=== PATIENT | male | born 1935 | race Caucasian/White ===

== ENCOUNTER 2017-03-23 16:06 | Inpatient (IN) | payer OTHER ==
[~2017-03-23] VITALS: Ht 190.5 cm; Wt 100.9 kg
--- NOTE | ~2017-03-23 | CATHLAB ---
[facility] [address] [place] [address] INVASIVE PROCEDURE REPORT Name: IVONNE SONG Room #: 203-P ADM IN .R.#: [id number] Admission: 03/23/17 Attend Phys: Peter Estrella, Discharge: Date of : 39 Date of Service: 03/28/17 1733 Report #: [id number] THIS REPORT FOR: //name// APPROVED REPORT Patient Details Patient Status: In-Patient Room #: The patient is a 81 year-old male Event Personnel Shay Hermosillo Tuft Machine Operator, Donna Javier, Jose Gerardo RN, Toyin Ocasio RN RN, Melanie Bills Procedures Performed Art Access - R femoral artery* Left Heart Cath w/or w/o Coronaries [id number] [facility] Hemostasis w/ Mynx Procedure Narrative The Right Groin^ was infiltrated with 1% Lidocaine subcutaneous anesthesia. A PINNACLE 6FR Sheath #[id number] sheath was inserted into the RFA^. Coronary angiography was performed using coronary diagnostic catheters. The right coronary system was accessed and visualized with a JR 4 catheter. The left coronary system was accessed and visualized with a JL 4 catheter. The left ventricle was accessed and visualized with a Pigtail catheter. Left ventricular/Aortic Valve gradient assessed via catheter pullback. Left ventriculogram was performed in 30 degree projection. Closure device was deployed with a 6 Fr Mynx. The patient tolerated the procedure well and there were no complications associated with the procedure. There was no hematoma. Fluoro Time: 15.27 minutes Dose: DAP 19288.50 cGycm2 1997 mGy Contrast Type and Amount: Visipaque 130 ml Hemodynamics The aortic pressure is 161/74 mmHg with a mean of 109 mmHg. The left ventricular pressure is 187/14 mmHg with a mean of mmHg. The left ventricular end diastolic pressure is 31 mmHg. Conclusion #1 borderline left ventricular dilatation mild global hypokinesis slightly worse inferior wall EF 45% range #2 left main mildly calcified giving rise to LAD and circumflex [facility] [address] [place] [address] INVASIVE PROCEDURE REPORT Name: NOHEMIIVONNE Samir Room #: 203-P [facility] IN .R.#: [id number] Admission: 03/23/17 Attend Phys: Peter Estrella, Discharge: Date of : 39 Date of Service: 03/28/17 1733 Report #: [id number] #3 LAD with proximal calcification mild irregularities extends around the apex moderate disease and a smaller diagonal system #4 nondominant circumflex ostial circumflex 40-50% diffuse disease distally #5 dominant RCA with a subtotaled what appears to be possible chronic total occlusion proximal vessel imperatively filling the PDA with collateral fill from the left system #6 unsuccessful attempted PTCA of this total occluded segment with significant calcification in the proximal RCA. It was successfully wired unable to cross with the smallest profile balloon. Recommendations and plan would continue aggressive risk factor modification aggressive medical therapy. Due to the fact that this vessel is collaterally filled risk-benefit of further attempted this RCA perspective probably not indicated. Aggressive management of risk factors and volume status. Ejection fraction near normal. Close follow-up is recommended <ELECTRONICALLY SIGNED> By: Shay Hermosillo MD, [facility] 03/28/17 [phone] Shay Hermosillo MD, FACC /INF
--- NOTE | ~2017-03-23 | 2DMMODE ---
[facility] [address] [place] [address] 2 D/M-MODE ECHOCARDIOGRAM Name: IVONNE SONG Room #: 212-P [facility] IN .R.#: [id number] Admission: 03/23/17 Attend Phys: Peter Estrella, Discharge: Date of : 39 Date of Service: 03/26/17 1136 Report #: [id number] THIS REPORT FOR: //name// APPROVED REPORT Study performed: 03/26/2017 09:06:04 EXAM: Comprehensive 2D, Doppler, and color-flow Echocardiogram Patient Location: Bedside Room #: 212 Status: routine BSA: 2.32 HR: 89 bpm BP: 147/86 mmHg Other Information Study Quality: Good Indications Congestive Heart Failure Cardiomyopathy ICD. 2D Dimensions RVDd: 59.40 mm LVEF(%): 42.90 (>50%) IVSd: 13.70 (7-11mm) LVOT Diam: 22.43 (18-24mm) LVDd: 54.78 mm PWd: 14.99 (7-11mm) Ascending Ao: 26.97 (22-36mm) LVDs: 43.07 (25-40mm) Aortic Root: 32.89 mm IVC: 40.00 mm Baker's LVEF: 42.90 % Volumes Left Atrial Volume (Systole) Single Plane 4CH: 80.30 mL Single Plane 2CH: 188.66 mL LA ESV Index: 58.00 mL/m2 Aortic Valve AoV Peak Morgan.: 1.87 m/s AO Peak Gr.: 14.19 mmHg LVOT Max P.00 mmHg LVOT Max V: 0.86 m/s NICK Vmax: 1.82 cm2 AI Vmax: 4.16 m/s AI [place]: 3.12 m/s2 AI PHT: 395.78 ms [facility] [place] [address] 2 D/M-MODE ECHOCARDIOGRAM Name: IVONNE SONG Room #: 212-P [facility] IN M.R.#: [id number] Admission: 03/23/17 Attend Phys: Peter Estrella, Discharge: Date of : 39 Date of Service: 03/26/17 1136 Report #: [id number] Mitral Valve MV Decel. Time: 181.66 ms MV E Max Morgan.: 1.40 m/s Pulmonary Valve PV Peak Morgan.: 1.15 m/s PV Peak Gr.: 5.30 mmHg [place] End Vmax: 1.76 m/s Tricuspid Valve TR Peak Morgan.: 3.57 m/s TR Peak Gr.: 51.08 mmHg PA Pressure: 66.00 mmHg Left Ventricle Left ventricle is at the upper limits of normal. Abnormall septal motion consistent with paced rhythm. Mild concentric left ventricular hypertrophy. The overall left ventricular systolic function appears normal. LVEF is 50-55%. This study is not technically sufficient to allow evaluation of the LV diastolic function. Right Ventricle Right ventricle is dilated. Right ventricle is hypokinetic. Device lead is present in the right ventricle. Atria Left atrium is dilated. Small PFO is noted with color flow doppler. Right atrium is dilated. Device lead is present in the right atrium. Aortic Valve The aortic valve is normal in structure. Aortic valve is calcified. Mild to moderate aortic regurgitation. There is no aortic valvular stenosis. Mitral Valve The mitral valve is normal in structure. There is mitral annular calcification. Moderate mitral regurgitation. No evidence of mitral valve stenosis. Tricuspid Valve The tricuspid valve is normal in structure. There is moderate tricuspid regurgitation. There is moderate pulmonary hypertension. Pulmonic Valve [address] [address] 2 D/M-MODE [facility]ARDIOGRAM [facility] #: [facility]-P [facility] IN M.R.#: [id number] Admission: 03/23/17 Attend Phys: Peter Estrella, Discharge: Date of : 37 Date of Service: 03/26/17 1136 Report #: [id number] The pulmonary valve is normal in structure. Mild pulmonic regurgitation. Great Vessels The aortic root is normal in size. The inferior vena cava is dilated with no inspiratory collapse. Pericardium There is no pericardial effusion. <Conclusion> Left ventricle is at the upper limits of normal. LVEF is 50-55%. Mild concentric left ventricular hypertrophy. This study is not technically sufficient to allow evaluation of the LV diastolic function. Right ventricle is dilated. Right ventricle is hypokinetic. Left atrium is dilated. Right atrium is dilated. Device lead is present in the right atrium. The aortic valve is normal in structure. Aortic valve is calcified. There is no aortic valvular stenosis. Moderate mitral regurgitation. There is moderate tricuspid regurgitation. There is moderate pulmonary hypertension. There is no pericardial effusion. <ELECTRONICALLY SIGNED> By: Shay Hermosillo MD, FACC 03/26/17 1136 1136 1136 Shay Hermosillo MD, FACC /INF
--- NOTE | ~2017-03-23 | HC ---
[facility] [place] [address] [place] [address] CONSULTATION Name: IVONNE SONG Room #: 203-P [facility] IN M.R.#: [id number] Admission: 03/23/17 Attend Phys: Peter Estrella DO Discharge: Date of : 37 Report #: [id number] THIS REPORT FOR: //name// CC: Peter Estrella DATE OF SERVICE: 03/27/2017 HISTORY OF PRESENT ILLNESS: The patient is a 81-year-old white male who was admitted to [facility] for right leg swelling. He was noted to have distal aortic stenosis, bilateral external iliac artery stenosis. He also was noted to have right lower extremity cellulitis. He was diagnosed with peripheral arterial disease with blockage and underwent stenting by Dr. Thayer. He also has coronary artery disease and per my review, this is not stentable. He has urinary retention with Reza catheter. He also has delirium and is noted to be in alcohol withdrawal with Psychiatry involved. We are seeing him in Rehabilitation Medicine consultation. 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 History of chronic obstructive pulmonary disease, was on some O2 at night and did take O2 on occasion during the day with activity. History of ETOH, heavy; tobacco abuse, heavy noted. He has had a prior stress fracture, right tibia. MEDICATIONS: Please see the full medication listing. ALLERGIES: No known drug allergies. HABITS: See above. FAMILY HISTORY: Noncontributory. SOCIAL HISTORY: Lives in a house with his . Premorbid walker ambulator, they have a ramp into the house. He was on oxygen premorbidly as noted above intermittently. REVIEW OF SYSTEMS: Somewhat difficult with his mental status. No complaints of chest pain, shortness of breath or abdominal discomfort. He had some complaints of having to urinate, and I emptied some of the urine in his tubing and that seemed to help his symptoms as he does have the Reza catheter. He did not indicate any focal extremity pain complaints at this time. PHYSICAL EXAMINATION: GENERAL: A 81-year-old obese white male, confused. Defers to his . He was cooperative. He can follow basic 1-step commands without difficulty. He could not tell me the place nor the city. VITAL SIGNS: Temperature 97.3, pulse 86, respirations 20, blood pressure [facility] [address] [place] [address] CONSULTATION Name: NOHEMI,IVONNE Dawson Room #: 203-P [facility] IN M.R.#: [id number] Admission: 03/23/17 Attend Phys: Peter Estrella DO Discharge: Date of : 37 Report #: [id number] 147/73. HEENT: Facies appeared symmetric. EXTREMITIES: He has functional range of motion of both upper extremities. Strength is probably a grade 3+ to 4-/5. DTRs are trace to 1 in his lower extremities; there is no focal calf swelling. He has some chronic skin changes of bilateral distal lower extremities with what appeared to be some old venous stasis changes. Lower extremity strength is probably grade 3+/5. DTRs are trace to 1. ASSESSMENT: A 81-year-old white male with the following problem list: 1. Peripheral arterial disease with blockage status post stenting. The right superficial femoral artery and popliteal underwent stent grafting. 2. Right lower extremity cellulitis. He has been on antibiotics as noted. 3. ETOH abuse with current withdrawal. 4. Paroxysmal atrial fibrillation. 5. Permanent pacemaker. 6. Cardiomyopathy. 7. Chronic obstructive pulmonary disease, on some oxygen premorbidly at home. 8. Urinary retention with Reza catheter in place. 9. Possible sepsis with Infectious Disease involved. 10. Prior history of a stress fracture, right tibia. PLAN: Therapy evaluations are underway. is desiring for the patient to go to the [facility] swing bed when he is further medically stabilized. At this point, we will follow along with you but that may certainly be a reasonable plan. Case management will further assist regarding arrangements with the [facility]. <ELECTRONICALLY SIGNED> By: Lexa Robin MD 04/02/17 1232 1240 0023 Lexa Robin MD /PAUL
--- NOTE | ~2017-03-23 | HC ---
[facility] [address] [place] [address] CONSULTATION Name: JANIVONNE WEIR Samir Room #: 212-P [facility] IN M.R.#: [id number] Admission: 03/23/17 Attend Phys: Peter Estrella DO Discharge: Date of : 37 Report #: [id number] THIS REPORT FOR: //name// CC: Peter Estrella REASON FOR CONSULTATION: I was asked to evaluate concerning right lower extremity infection. HISTORY OF PRESENT ILLNESS: The patient is a 81-year-old with underlying history of cardiovascular disease with congestive heart failure, previous DVT, COPD. Over the last several days, he has had increased pain and swelling in the right lower extremity. He reports no specific trauma. Outpatient workup included ultrasound of the leg, which was negative for DVT. Because of the worsening, he was sent into the ER at [facility] and then transferred here for further evaluation. He has had arterial studies, which showed monophasic waves in the right lower extremity. His white count has been elevated at 20,000. I do not have access to further laboratory studies. The patient was a poor historian. ALLERGIES: None known. MEDICATIONS: As noted on his MAR, which were reviewed including digoxin, Coumadin. PAST MEDICAL HISTORY: Atrial fibrillation, coronary artery disease, previous cardiac arrest, congestive heart failure, syncope, gout, hyperlipidemia, cataract surgery, stroke, COPD. FAMILY HISTORY: Noncontributory. SOCIAL HISTORY: He is a past smoker, significant alcohol intake. REVIEW OF SYSTEMS: He denies any cough or sputum production. Denies any chest pain, nausea, vomiting or diarrhea. He has a difficulty urinating and has a Reza catheter in, now complains a discomfort with this. PHYSICAL EXAMINATION: VITAL SIGNS: He is afebrile, hemodynamically stable, pulse is 118. GENERAL: He was alert and cooperative, although was uncomfortable. He is on 2 liters of oxygen per nasal cannula. HEENT: Unremarkable. NECK: Supple, no adenopathy. LUNGS: Decreased breath sounds bilaterally. HEART: Tachycardic and regular. ABDOMEN: Protuberant, nontender, no hepatosplenomegaly or mass. GENITOURINARY: External genitalia unremarkable with indwelling Reza catheter. RECTAL: Not performed. [facility] [address] [place] [address] CONSULTATION Name: NOHEMIIVONNE Room #: 212-P [facility] IN M.R.#: [id number] Admission: 03/23/17 Attend Phys: Peter Estrella DO Discharge: Date of : 37 Report #: [id number] EXTREMITIES: Right lower extremity had erythema and ecchymosis, foot to proximal calf region. Exquisitely tender. Decreased pulses in the foot on the right. Good pulse in the groin. Could not palpate a reasonable pulse in the popliteal region. Also had mild erythema to the left lower extremity. Strength was reasonable. LABORATORY STUDIES: As noted above. Repeat studies are currently pending. IMPRESSION: A 81-year-old with a painful right lower extremity, appears ischemia maybe the underlying etiology. Has secondary infection. Staphylococcus or streptococcus would be most likely in etiology; I do not see any chronic wounds. Recommend repeating his laboratory studies. Continue antibiotic coverage for his lower extremity infection. Further imaging to assess his vasculature. <ELECTRONICALLY SIGNED> By: Davy Burrows MD 03/24/17 [phone] 0221 Davy Burrows MD /nt
--- NOTE | ~2017-03-23 | EKG ---
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: smooth : 1935 Requested By: Davy Burrows Order Number: [id number] MD: Georges Oates Measurements Intervals [place] Rate: 78 P: -53 ID: [id number] QRS: 224 QRSD: 154 T: 32 QT: 427 QTc: 487 Interpretive Statements Ventricular-paced complexes No further analysis attempted due to paced rhythm Baseline wander in lead(s) V2 Compared to ECG 01/08/2010 09:41:48 Ventricular pacing is now present Electronically Signed On 03-24-2017 16:27:16 CDT by Georges Oates [email or web address] <ELECTRONICALLY SIGNED> By: Georges Oates MD, [facility] 03/24/17 1627 0620 Georges Oates MD, [facility] /EPI
--- NOTE | ~2017-03-23 | EKG ---
[place] [address] [facility] [place] [address] ELECTROCARDIOGRAM REPORT Name: IVONNE SONG Room #: 212-P ADM IN M.R.#: [id number] Admission: 03/23/17 Attend Phys: Peter Estrella DO Discharge: Date of : 37 Report #: [id number] THIS REPORT FOR: //name// [facility] Test Date: 2017-03-24 Test Time: 07:00:15 Pat Name: IVONNE SONG Department: Room: 212 P Gender: M [employer] Rep: smooth : 1935 Requested By: Kevin Lake Order Number: [id number] MD: Georges Oates Measurements Intervals [place] Rate: 89 P: OR: QRS: 219 QRSD: 176 T: 31 QT: 453 QTc: 552 Interpretive Statements Afib/flut and V-paced complexes No further analysis attempted due to paced rhythm Compared to ECG 01/08/2010 09:41:48 No significant change was found Electronically Signed On 03-24-2017 8:01:00 CDT by Georges Oates [email or web address] <ELECTRONICALLY SIGNED> By: Georges Oates MD, [facility] 09/05/30 [phone] Georges Oates MD, [facility] /EPI
--- NOTE | ~2017-03-23 | HC ---
[facility] [place] [address] [place] [address] CONSULTATION Name: IVONNE SONG Room #: 212-P [facility] IN M.R.#: [id number] Admission: 03/23/17 Attend Phys: Peter Estrella DO Discharge: Date of : 37 Report #: [id number] THIS REPORT FOR: //name// CC: Peter Estrella DATE OF SERVICE: 03/23/2017 CARDIOLOGY CONSULTATION INDICATION: Elevated troponin. HISTORY OF PRESENT ILLNESS: This is a 81-year-old gentleman transferred from [facility] with right lower extremity cellulitis. The patient has had diminished ambulation, exacerbated recently. He has had increased swelling and erythema of his right lower extremity, diagnosed with cellulitis and transferred to [facility]. He is unclear about his cardiac history. It seems that he had a pacemaker placed at [facility] by Dr. Dong and has seen him recently. There is also a history of paroxysmal atrial fibrillation. The patient denies any history of [place] or cardiomyopathy. ALLERGIES: None. MEDICATIONS: Include digoxin 0.125 mg a night, albuterol, furosemide 20 mg daily, metoprolol XL 50 mg daily, Eliquis twice a day. Unclear if he is on Eliquis or Coumadin for paroxysmal atrial fibrillation, history of CVA, COPD. SOCIAL HISTORY: Negative for tobacco use. FAMILY HISTORY: Negative for premature CAD. REVIEW OF SYSTEMS: A full 10-point review of systems performed. Only the pertinent positives and negatives are described in the HPI. PHYSICAL EXAMINATION: VITAL SIGNS: Blood pressure is 110/60, heart rate is 95 beats per minute. GENERAL APPEARANCE: An overweight male in no acute respiratory distress. HEAD AND EYES: Normocephalic. Sclerae are anicteric. ENT: Oral mucosa is moist. NECK: Supple, no JVD. LUNGS: Clear to auscultation, slightly diminished breath sounds at bases. CARDIAC: S1, S2 positive, no gallops. ABDOMEN: Protuberant, soft, nontender. EXTREMITIES: Erythema of the right lower extremity, positive edema. LABORATORY VALUES: ECG from [facility] reveals a [facility] [address] [place] [address] CONSULTATION Name: NOHEMI,IVONNE Dawson Room #: 212-P ADM IN M.R.#: [id number] Admission: 03/23/17 Attend Phys: Peter Estrella DO Discharge: Date of : 37 Report #: [id number] ventricular paced rhythm. Laboratory values from [facility] reveals an elevated white count at 20.68, hemoglobin is 10.6. Creatinine is 1.42, minimally elevated troponin level. ASSESSMENT AND PLAN: 1. Cellulitis, continue antibiotics and check cultures. May need an evaluation to rule out peripheral vascular disease. 2. Troponin elevation. The significance is unclear. He offers no complaints of angina and denies any prior history of coronary artery disease. We will need to evaluate further troponins and obtain an echo. We will need an ischemic evaluation at some point. 3. Paroxysmal atrial fibrillation, continue with medications. 4. Permanent pacemaker, we will obtain an interrogation. 5. Congestive heart failure, the patient denies any history, we will await an echo. Thank you for allowing me to participate in the care of your patient. <ELECTRONICALLY SIGNED> By: Kevin Lake MD 03/24/17 [phone] Kevin Lake MD /nt
[~2017-03-23 16:06] MED LIST: ALLOPURINOL 30300 M1 PO; ALPHAGAN P10 ML OT; ATROVENT30 ML NS; COUMADIN 10MG T10 M1 PO; COUMADIN 5 MG TA5 M1 PO; FISHOIL PO; FLOMAX PO; K-DUR 20 MEQ T20 MEQ PO; LANOXIN 0.120.125 M1 PO; LASIX 40 MG TAB40 M1 PO; LYSIPLEX PLUS178 ML PO; METOLAZONE 5 MG5 M1 PO; PACERONE 200 M200 MG PO; PREDNISONE 20 M20 M1 PO; PROVENTIL INH; PULMICORT0.25 MG/2 IH; TYLENOL P.M. E1 EAC3 PO; VITAMIN B-12500 MCG PO; ZESTRIL20 MG PO
[2017-03-23] MEDS ORDERED: OSTEO BI-FLEX1 EAC1 PO (17:31)
[2017-03-23] MEDS ORDERED: MULTIVITAMINS1 EAC7 PO (17:32)
[2017-03-23] MEDS ORDERED: SAW PALMETTO450 MG PO (17:32)
[2017-03-23] MEDS ORDERED: MELATONIN1 MG PO (17:33)
[2017-03-23] MEDS ORDERED: SENNA8.6 MG PO (17:34)
[2017-03-23] MEDS ORDERED: ALBUTEROL2.5 MG/3 M INH (17:35)
[2017-03-23] MEDS ORDERED: AMITIZA8 MCG PO (17:36)
[2017-03-23] MEDS ORDERED: BUDESONIDE0.5 MG/2 M INH (17:36)
[2017-03-23] MEDS ORDERED: BROVANA15 MCG/2 M INH (17:36)
[2017-03-23] MEDS ORDERED: PROAIR RESPICL90 MCG INH (17:37)
[2017-03-23] MEDS ORDERED: MAGOX 400400 MG PO (17:38)
[2017-03-23] MEDS ORDERED: TOPROL XL50 MG PO (17:38)
[2017-03-23] MEDS ORDERED: RESTORIL15 MG PO (17:38)
[2017-03-23] MEDS ORDERED: LASIX 20 MG TAB20 MG PO (17:39)
[2017-03-23] MEDS ORDERED: POTASSIUM CHLO20 ME2 PO (17:40)
[2017-03-23 20:11] VITALS: BP 145/94
[2017-03-23 23:11] VITALS: BP 143/72
[2017-03-24 01:27] LABS: URINE BLOOD 3+ (Negative); URINE COLOR RED; URINE GLUCOSE-RANDOM* NEGATIVE (Negative); URINE KETONES TRACE (Negative); URINE PROTEIN (DIPSTICK) 2+ (Negative); URINE SPECIFIC GRAVITY <= 1.005 (1.003-1.035)
[2017-03-24 01:41] LABS: ICTOTEST (BILI CONFIRMATORY) Negative (Negative); URINE BILIRUBIN NEGATIVE (Negative); URINE LEUKOCYTES-REFLEX TRACE (Negative)
[2017-03-24 01:42] LABS: CASTS None Seen /LPF (None Seen); SQUAMOUS None Seen /LPF (0-3); URINE WBC-REFLEX >25 Many /HPF (0-5)
[2017-03-24 01:43] LABS: CRYSTALS None Seen /LPF (None Seen); URINE RBC >20 Many /HPF (0-2); WBC CLUMPS Many (None Seen)
[2017-03-24 03:16] LABS: HEMOGLOBIN 10.1 gm/dL (14.0-18.0); MCHC 32.6 g/dL (28.0-37.0); MCV 104.2 fL (80.0-100.0); PLATELET COUNT 207 thou/uL (150-400); RBC 2.98 mil/uL (4.50-6.00); RDW 16.3 % (10.5-14.5); WBC 19.6 thou/uL (4.0-11.0)
[2017-03-24 03:26] LABS: CALCIUM 8.6 mg/dL (8.5-10.1); CREATININE 1.1 mg/dL (0.7-1.3); POTASSIUM 4.1 mmol/L (3.5-5.1)
[2017-03-24 03:30] LABS: MANUAL DIFF YES
[2017-03-24 03:49] VITALS: BP 144/75
[2017-03-24 05:35] LABS: ABSOLUTE NEUTROPHILS 16.3 thou/uL (1.4-8.2); TOTAL CELL COUNT 100
[2017-03-24 05:36] LABS: ANISOCYTOSIS 1+; MACROCYTES 1+
[2017-03-24 08:05] VITALS: BP 155/95
[2017-03-24 12:09] VITALS: BP 141/68
[2017-03-24 15:00] VITALS: BP 151/73
[2017-03-24 19:41] VITALS: BP 131/76
[2017-03-24] MEDS ORDERED: BENADRYL25 MG PO (21:30)
[2017-03-24] MEDS ORDERED: ELIQUIS5 MG PO (21:31)
[2017-03-24] MEDS ORDERED: COZAAR 50 MG TA50 M2 PO (21:32)
[2017-03-24] MEDS ORDERED: ATROVENT HFA14 GM INH (21:34)
[2017-03-24] MEDS ORDERED: OSTEO BI-FLEX1 EAC1 PO (21:36)
[2017-03-24] MEDS ORDERED: MELATONIN3 M3 PO (21:39)
[2017-03-24] MEDS ORDERED: TOPROL XL50 MG PO (21:45)
[2017-03-24] MEDS ORDERED: AUGMENTIN 875-1 EACH PO (21:47)
[2017-03-24 23:23] VITALS: BP 162/92
[2017-03-25] VITALS (11 sets, daily range): BP systolic 111–172; BP diastolic 60–111
[2017-03-25 09:11] LABS: URINE BILIRUBIN NEGATIVE (Negative); URINE BLOOD 3+ (Negative); URINE COLOR DK YELLOW; URINE GLUCOSE-RANDOM* NEGATIVE (Negative); URINE KETONES NEGATIVE (Negative); URINE NITRITE NEGATIVE (Negative); URINE PROTEIN (DIPSTICK) 1+ (Negative); URINE SPECIFIC GRAVITY 1.015 (1.003-1.035); URINE UROBILINOGEN 0.2 E.U./dl (0.2-1.0)
[2017-03-25 09:30] LABS: CASTS None Seen /LPF (None Seen); SQUAMOUS 0-3 Few /LPF (0-3)
[2017-03-25 09:31] LABS: BACTERIA 1-9 Few /HPF (None Seen); CRYSTALS None Seen /LPF (None Seen); URINE RBC >20 Many /HPF (0-2); URINE WBC 0-5 Rare /HPF (0-5)
[2017-03-25 09:43] LABS: PHOSPHORUS 3.1 mg/dL (2.5-4.9)
[2017-03-25 10:37] LABS: FOLIC ACID 18.5 ng/mL (8.6-58.9)
[2017-03-25 18:10] LABS: FREE T4 1.25 ng/dL (0.82-1.77)
[2017-03-25 18:12] LABS: AMP/METHAMP Negative (Negative); BARBITURATES Negative (Negative); BENZODIAZEPINES Negative (Negative); COCAINE Negative (Negative); METHADONE Negative (Negative); OPIATES Negative (Negative); PCP Negative (Negative); THC Negative (Negative)
[2017-03-26 05:55] VITALS: BP 159/96
[2017-03-26 07:37] VITALS: BP 147/86
[2017-03-26 08:46] LABS: HEMATOCRIT 30.4 % (42.0-52.0); HEMOGLOBIN 9.7 gm/dL (14.0-18.0); MCH 33.8 pg (26.0-34.0); MCHC 32.1 g/dL (28.0-37.0); MCV 105.3 fL (80.0-100.0); PLATELET COUNT 236 thou/uL (150-400); RBC 2.88 mil/uL (4.50-6.00); RDW 16.8 % (10.5-14.5); WBC 14.6 thou/uL (4.0-11.0)
[2017-03-26 08:54] LABS: MANUAL DIFF YES
[2017-03-26 08:57] LABS: CALCIUM 8.8 mg/dL (8.5-10.1); CREATININE 1.1 mg/dL (0.7-1.3); POTASSIUM 3.9 mmol/L (3.5-5.1)
[2017-03-26 09:03] LABS: INR 1.2
[2017-03-26 09:12] LABS: ABSOLUTE NEUTROPHILS 12.6 thou/uL (1.4-8.2); ANISOCYTOSIS 1+; MACROCYTES 1+; PLATELET ESTIMATE NORMAL; POLYCHROMASIA SLIGHT; TOTAL CELL COUNT 100
[2017-03-26 11:30] VITALS: BP 149/67
[2017-03-26 20:35] VITALS: BP 154/107
[2017-03-27] VITALS (10 sets, daily range): BP systolic 126–152; BP diastolic 38–79
[2017-03-27 04:46] LABS: CALCIUM 8.9 mg/dL (8.5-10.1); CREATININE 1.4 mg/dL (0.7-1.3); MAGNESIUM 2.3 mg/dL (1.8-2.4); PHOSPHORUS 4.2 mg/dL (2.5-4.9); POTASSIUM 4.3 mmol/L (3.5-5.1)
[2017-03-28 03:12] VITALS: BP 198/86
[2017-03-28 04:17] VITALS: BP 142/98
[2017-03-28 04:31] LABS: HEMATOCRIT 31.3 % (42.0-52.0); HEMOGLOBIN 10.1 gm/dL (14.0-18.0); MCH 34.3 pg (26.0-34.0); MCHC 32.4 g/dL (28.0-37.0); PLATELET COUNT 298 thou/uL (150-400); RBC 2.95 mil/uL (4.50-6.00); RDW 16.6 % (10.5-14.5); WBC 16.7 thou/uL (4.0-11.0)
[2017-03-28 04:41] LABS: CALCIUM 9.2 mg/dL (8.5-10.1); CREATININE 1.2 mg/dL (0.7-1.3); POTASSIUM 3.9 mmol/L (3.5-5.1)
[2017-03-28 05:02] LABS: MANUAL DIFF YES
[2017-03-28 07:54] VITALS: BP 183/87
[2017-03-28 08:40] LABS: ABSOLUTE NEUTROPHILS 13.9 thou/uL (1.4-8.2); ANISOCYTOSIS 1+; HYPOCHROMASIA 1+; MACROCYTES 1+; PLATELET ESTIMATE NORMAL; TOTAL CELL COUNT 100
[2017-03-28 11:40] VITALS: BP 125/85
[2017-03-28 15:43] VITALS: BP 155/82
[2017-03-28 19:07] VITALS: BP 128/79
[2017-03-28 21:13] LABS: URINE BILIRUBIN NEGATIVE (Negative); URINE BLOOD 3+ (Negative); URINE COLOR YELLOW; URINE GLUCOSE-RANDOM* NEGATIVE (Negative); URINE KETONES NEGATIVE (Negative); URINE PROTEIN (DIPSTICK) NEGATIVE (Negative); URINE UROBILINOGEN 0.2 E.U./dl (0.2-1.0)
[2017-03-28 21:14] LABS: URINE LEUKOCYTES-REFLEX 1+ (Negative)
[2017-03-28 21:19] LABS: SQUAMOUS None Seen /LPF (0-3); URINE RBC >20 Many /HPF (0-2); URINE WBC-REFLEX 6-15 Few /HPF (0-5)
[2017-03-28 21:20] LABS: CASTS None Seen /LPF (None Seen); CRYSTALS None Seen /LPF (None Seen)
[2017-03-29 03:33] LABS: HEMATOCRIT 30.2 % (42.0-52.0); HEMOGLOBIN 9.8 gm/dL (14.0-18.0); MCH 34.1 pg (26.0-34.0); MCHC 32.5 g/dL (28.0-37.0); PLATELET COUNT 318 thou/uL (150-400); RBC 2.87 mil/uL (4.50-6.00); RDW 16.5 % (10.5-14.5); WBC 15.6 thou/uL (4.0-11.0)
[2017-03-29 03:35] LABS: MANUAL DIFF YES
[2017-03-29 03:38] LABS: CALCIUM 9.3 mg/dL (8.5-10.1); CREATININE 1.1 mg/dL (0.7-1.3); POTASSIUM 3.5 mmol/L (3.5-5.1)
[2017-03-29 03:50] VITALS: BP 95/69
[2017-03-29 07:42] VITALS: BP 181/55
[2017-03-29 07:58] LABS: ANISOCYTOSIS 1+; MACROCYTES 1+; NUCLEATED RBCS 3 /100WBC; PROMYELOCYTES 2 %; TOTAL CELL COUNT 100
[2017-03-29 11:58] VITALS: BP 177/88
[2017-03-29 16:18] VITALS: BP 146/83
[2017-03-29 19:39] VITALS: BP 137/73
[2017-03-30 00:40] VITALS: BP 121/46
[2017-03-30 03:04] LABS: ABSOLUTE NEUTROPHILS 12.7 thou/uL (1.4-8.2); BASOPHILS 0.2 % (0.0-2.0); EOSINOPHILS 0.3 % (0.0-3.0); HEMATOCRIT 30.1 % (42.0-52.0); HEMOGLOBIN 9.8 gm/dL (14.0-18.0); LYMPHOCYTES 10.3 % (24.0-44.0); MCHC 32.7 g/dL (28.0-37.0); MCV 103.8 fL (80.0-100.0); MONOCYTES 11.8 % (1.0-8.0); PLATELET COUNT 350 thou/uL (150-400); POLYS 77.4 % (36.0-66.0); RDW 16.7 % (10.5-14.5); WBC 16.4 thou/uL (4.0-11.0)
[2017-03-30 03:05] LABS: CALCIUM 9.1 mg/dL (8.5-10.1); CREATININE 1.1 mg/dL (0.7-1.3); MANUAL DIFF NO; POTASSIUM 3.4 mmol/L (3.5-5.1)
[2017-03-30 04:39] VITALS: BP 116/63
[2017-03-30 07:00] VITALS: BP 169/43
[2017-03-30 11:05] VITALS: BP 153/93
[2017-03-30] MEDS ORDERED: TRAVATAN Z2.5 ML OPHTHALMIC (11:30)
[2017-03-30 15:55] VITALS: BP 175/103
[2017-03-30 19:02] VITALS: BP 153/90
[2017-03-31 03:12] LABS: HEMATOCRIT 29.6 % (42.0-52.0); HEMOGLOBIN 9.5 gm/dL (14.0-18.0); MCH 33.9 pg (26.0-34.0); MCHC 32.2 g/dL (28.0-37.0); MCV 105.3 fL (80.0-100.0); PLATELET COUNT 304 thou/uL (150-400); RBC 2.81 mil/uL (4.50-6.00); RDW 17.1 % (10.5-14.5); WBC 16.5 thou/uL (4.0-11.0)
[2017-03-31 03:16] LABS: MANUAL DIFF YES
[2017-03-31 03:17] LABS: CREATININE 0.9 mg/dL (0.7-1.3); POTASSIUM 3.1 mmol/L (3.5-5.1)
[2017-03-31 04:48] LABS: ABSOLUTE NEUTROPHILS 12.5 thou/uL (1.4-8.2); ANISOCYTOSIS 1+; TOTAL CELL COUNT 100
[2017-03-31 04:49] LABS: MACROCYTES 1+; POLYCHROMASIA OCCASIONAL; TOXIC GRANULATION 2+
[2017-03-31 05:16] VITALS: BP 186/102
[2017-03-31 08:13] VITALS: BP 153/78
[2017-03-31 12:27] VITALS: BP 122/63
[2017-03-31 15:50] VITALS: BP 158/88
[2017-03-31 19:44] VITALS: BP 121/65
[2017-04-01] VITALS (7 sets, daily range): BP systolic 108–161; BP diastolic 49–64
[2017-04-01 04:10] LABS: HEMOGLOBIN 8.3 gm/dL (14.0-18.0); MCV 106.2 fL (80.0-100.0); PLATELET COUNT 280 thou/uL (150-400); RBC 2.45 mil/uL (4.50-6.00); RDW 17.1 % (10.5-14.5); WBC 16.3 thou/uL (4.0-11.0)
[2017-04-01 04:46] LABS: MANUAL DIFF YES
[2017-04-01 05:38] LABS: ABSOLUTE NEUTROPHILS 13.9 thou/uL (1.4-8.2); TOTAL CELL COUNT 100
[2017-04-01 05:39] LABS: ANISOCYTOSIS 1+; MACROCYTES 1+
[2017-04-01 07:19] LABS: CALCIUM 8.6 mg/dL (8.5-10.1); CREATININE 0.8 mg/dL (0.7-1.3)
[2017-04-02 02:00] VITALS: BP 141/62
[2017-04-02 04:00] VITALS: BP 119/52
[2017-04-02 08:45] VITALS: BP 129/63
[2017-04-02 09:59] LABS: HEMATOCRIT 25.9 % (42.0-52.0); HEMOGLOBIN 8.5 gm/dL (14.0-18.0); MCH 34.1 pg (26.0-34.0); MCHC 32.6 g/dL (28.0-37.0); MCV 104.6 fL (80.0-100.0); PLATELET COUNT 308 thou/uL (150-400); RBC 2.47 mil/uL (4.50-6.00); RDW 17.3 % (10.5-14.5); WBC 15.7 thou/uL (4.0-11.0)
[2017-04-02 10:09] LABS: CALCIUM 8.3 mg/dL (8.5-10.1); POTASSIUM 3.6 mmol/L (3.5-5.1)
[2017-04-02 10:13] LABS: MANUAL DIFF YES
[2017-04-02 10:57] LABS: ABSOLUTE NEUTROPHILS 12.7 thou/uL (1.4-8.2); PLATELET ESTIMATE NORMAL; TOTAL CELL COUNT 100
[2017-04-02] MEDS ORDERED: ENOXAPARIN100 MG/11 SUBQ (12:16)
[2017-04-02] MEDS ORDERED: ALBUTEROL2.5 MG/31 INH (12:16)
[2017-04-02] MEDS ORDERED: OLANZAPINE10 M2 IM (12:16)
[2017-04-02] MEDS ORDERED: PULMICORT0.5 MG/22 INH (12:16)
[2017-04-02] MEDS ORDERED: FUROSEMIDE20 MG/2 ML IV PUSH (12:16)
[2017-04-02] MEDS ORDERED: OLANZAPINE ODT5 MG SUBLING ×2 (12:16)
[2017-04-02] MEDS ORDERED: RESTORIL30 MG PO (12:16)
[2017-04-02] MEDS ORDERED: NORCO 5-325 TA1 EACH PO (12:16)
[2017-04-02] MEDS ORDERED: FLOMAX0.4 MG PO (12:16)
[2017-04-02] MEDS ORDERED: DIGOXIN250 MCG/1 IV PUSH (12:16)
[2017-04-02] MEDS ORDERED: FENTANYL 0.50 MCG/ML IV PUSH (12:16)
[2017-04-02] MEDS ORDERED: ANCEF 1GM1 GM/50 M1 IVPB (16:41)
== END 2017-04-02 17:30 | DRG 853 ==
LOC: 2N 16:06
PROVIDERS: Family Medicine; Internal Medicine Cardiovascular Disease; Internal Medicine Geriatric Medicine; Specialist
PROC: 047M3DZ Dilation of Right Popliteal Artery with Intraluminal Device, Percutaneous Approach (ICD-10-PCS; principal; 2017-03-26)
PROC: 04CK3ZZ Extirpation of Matter from Right Femoral Artery, Percutaneous Approach (ICD-10-PCS; 2017-03-26)
PROC: 04CM3ZZ Extirpation of Matter from Right Popliteal Artery, Percutaneous Approach (ICD-10-PCS; 2017-03-26)
PROC: 047K3DZ Dilation of Right Femoral Artery with Intraluminal Device, Percutaneous Approach (ICD-10-PCS; 2017-03-26)
PROC: 047C3DZ Dilation of Right Common Iliac Artery with Intraluminal Device, Percutaneous Approach (ICD-10-PCS; 2017-03-26)
PROC: B4181ZZ Fluoroscopy of Bilateral Renal Arteries using Low Osmolar Contrast (ICD-10-PCS; 2017-03-26)
PROC: 4A023N7 Measurement of Cardiac Sampling and Pressure, Left Heart, Percutaneous Approach (ICD-10-PCS; 2017-03-28)
PROC: B2151ZZ Fluoroscopy of Left Heart using Low Osmolar Contrast (ICD-10-PCS; 2017-03-28)
PROC: B2111ZZ Fluoroscopy of Multiple Coronary Arteries using Low Osmolar Contrast (ICD-10-PCS; 2017-03-28)
DX: A41.9 Sepsis, unspecified organism (principal); I50.43 Acute on chronic combined systolic (congestive) and diastolic (congestive) heart failure; I42.9 Cardiomyopathy, unspecified; I48.92 Unspecified atrial flutter; L03.115 Cellulitis of right lower limb; E87.1 Hypo-osmolality and hyponatremia; E87.0 Hyperosmolality and hypernatremia; F10.231 Alcohol dependence with withdrawal delirium; I69.354 Hemiplegia and hemiparesis following cerebral infarction affecting left non-dominant side; M84.361A Stress fracture, right tibia, initial encounter for fracture; I25.10 Atherosclerotic heart disease of native coronary artery without angina pectoris; M10.9 Gout, unspecified; E78.5 Hyperlipidemia, unspecified; J44.9 Chronic obstructive pulmonary disease, unspecified; I48.0 Paroxysmal atrial fibrillation; I73.9 Peripheral vascular disease, unspecified; R33.9 Retention of urine, unspecified; H91.90 Unspecified hearing loss, unspecified ear; E78.00 Pure hypercholesterolemia, unspecified; F15.10 Other stimulant abuse, uncomplicated; I11.0 Hypertensive heart disease with heart failure; D64.9 Anemia, unspecified; I87.2 Venous insufficiency (chronic) (peripheral); N40.0 Benign prostatic hyperplasia without lower urinary tract symptoms; I77.89 Other specified disorders of arteries and arterioles; Z86.74 Personal history of sudden cardiac arrest; Z87.891 Personal history of nicotine dependence; Z95.0 Presence of cardiac pacemaker; Z98.42 Cataract extraction status, left eye; Z98.41 Cataract extraction status, right eye; Z82.49 Family history of ischemic heart disease and other diseases of the circulatory system; Z80.9 Family history of malignant neoplasm, unspecified; Z82.3 Family history of stroke
CPT/HCPCS: 10081